=== PATIENT | female | born 1980 | race Caucasian/White ===

== ENCOUNTER → 2017-07-01 | Outpatient (CLI) | payer OTHER ==
[~2017-07-01] MED LIST: BUTA1CAP6 PO; CLON0.5T3 PO; CYCL10TA6 PO
== END | disposition home or self-care (01) ==
LOC: C.LAB 09:51
PROVIDERS: ATTEND Obstetrics & Gynecology
DX: Z13.228 Encounter for screening for other metabolic disorders (principal)

== ENCOUNTER 2019-09-29 14:08 | Observation (INO) ==
[2019-09-29] MEDS ORDERED: ACETAMINOPHEN 325 MG TAB PO PRN (14:43)
[2019-09-29] MEDS ORDERED: NIFEdipine 10 MG CAP PO STA ×3 (14:43→18:07)
[2019-09-29] MEDS ORDERED: ONDANSETRON INJ 2 MG/ML 2 ML VIAL IV PRN (14:43)
[2019-09-29 15:10] LABS: Basophils # (auto) 0.04 K/uL (0-0.2); Basophils % (auto) 0.3 %; Eosinophils # (auto) 0.14 K/uL (0-0.5); Hemoglobin 12.3 g/dL (12.0-16.0); Immature Granulocytes # (auto) 0.53 K/uL (0.00-0.02); Immature Granulocytes % (auto) 3.6 %; Lymphocytes # (auto) 3.11 K/uL (1.2-3.4); Lymphocytes % (auto) 21.3 %; Mean Corpuscular Hemoglobin 33.2 pg (25-34); Mean Corpuscular Hgb Conc 35.1 g/dL (32-36); Mean Corpuscular Volume 94.3 fL (80-100); Monocytes % (auto) 10.3 %; Neutrophils # (auto) 9.26 K/uL (1.4-6.5); Neutrophils % (auto) 63.5 %; Platelet Count 233 K/uL (130-400); RDW Coefficient of Variation 14.3 % (11.5-14.5); Red Blood Count 3.71 M/uL (4.2-5.4); White Blood Count 14.58 K/uL (4.8-10.8)
[2019-09-29] MEDS: BETAMETH SOD PHOS/ACETATE IA 6 MG/ML IM SCH (15:12)
--- NOTE | 2019-09-29 15:15 | History & Physical Report ---
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[employer] [employer] They were regular but getting better and spacing out for the last 1-2 ours Some ctxs are painful some are not No LOF/VB/ vaginal discharge/ itching or burning No problems with urination nor BM No fever/ cills/ N&V/ HANNAH change in vision +FM's Her has been uncomplicated except Class I obesity AMA Migraines Allergies Allergy/AdvReac Type Severity Reaction Status Date / Time erythromycin base Allergy Unknown Unverified 05/14/18 12:16 Home Medications Home Medications Medication Instructions Recorded Confirmed Type [id number] 1 - 2 cap PO Q4H PRN #20 08/24/14 History (BUTALBITAL/ACETAMINOPHEN/) CLONAZEPAM (KLONOPIN) 0.5 mg PO BID PRN #30 08/24/14 History CYCLOBENZAPRINE HCL (FLEXERIL) 10 mg PO Q4H PRN #21 tab 08/17/16 History BIOTIN 1,000 mg PO DAILY #0 05/14/18 History Cholecalciferol (Vitamin D) 1,000 unit PO DAILY #0 05/14/18 History FOLIC ACID (FOLVITE) 1 mg PO DAILY #0 tab 05/14/18 History VALERIE (ZINGIBER OFFICINALIS) 500 mg PO DAILY #0 05/14/18 History (VALERIE) Magnesium Oxide (Mag-Ox) 400 mg PO DAILY #0 tab 05/14/18 History VIT W/ FERROUS FUMARA 1 tab PO DAILY #0 05/14/18 History () PYRIDOXINE HCL (VITAMIN B6) 100 mg PO DAILY #0 tab 05/14/18 History Patient History Social History Preferred Language: [place] Communication Ability: Effective Aerotriangulation Specialist Required: No Beliefs That Will Affect Care: None marital status: Current Living Situation: Spouse Other Information That Helps Us Care for You: No Feels Safe at Home: Yes Safety Concerns: Feels Safe At This Time Smoking Status: Never smoker Hx Alcohol Use: No Hx Substance Use: No Review of Systems All systems reviewed & are unremarkable except as noted in HPI & below Physical Exam Constitutional: WD/WN, vitals as above well developed and well nourished NAD Gastrointestinal (Abdomen): Abd: soft, NT, gravid, mild to moderate ctxs q3-5 min Genitourinary: normal external appearance SSE: yellow d/c in upper vagina, Cx and FFN collected Cervix 1/ 50%/ -3, soft, Results & Data Vital Signs (Past 12 Hours) Vital Signs Temp Pulse Resp BP 09/29/19 14:47 118 H 135/77 09/29/19 14:41 121 H 18 150/80 H 09/29/19 14:32 123 H 18 159/85 H 09/29/19 14:25 36.6 C 20 09/29/19 14:15 121 H 131/82 Monitoring External Monitor Reative for GA Tocodynamometer Ctxs q2-4 min
[2019-09-29 15:16] LABS: Appearance Urine Cloudy (Clear); Bacteria Urine Automated 2+ (Negative); Bilirubin Urine Negative (Negative); Blood Urine Negative (Negative); Color Urine Dark Yellow; Epithelial Cell Urine Auto >30 /lpf (0-5); Glucose Urine UA 3+ (Negative); Ketones Urine 1+ (Negative); Leukocyte Esterase Urine 1+ (Negative); Nitrite Urine Negative (Negative); Protein Urine Negative (Negative); Specific Gravity Urine 1.037 (1.000-1.030); Urobilinogen Urine Negative (Negative); pH Urine 5.5 (4.5-7.5)
[2019-09-29 15:31] LABS: Albumin Level 2.7 gm/dl (3.4-5.0); BUN Creatinine Ratio 18.7 (10-20); Creatinine Clr Calc Pharmacy 164.4 ml/min; Est GFR (African American) 137.3; Est GFR (Non-African American) 118.4; Potassium 3.8 mmol/L (3.5-5.1)
[2019-09-29] MEDS: LACTATED RINGER'S 1,000 ML IV PRN ×4 (15:32→23:20)
[2019-09-29 15:33] LABS: Albumin Globulin Ratio 0.6 (0.9-2); Bilirubin,Total 0.2 mg/dl (0.2-1); Globulin 4.2 gm/dl (2.5-4.0); Total Protein 6.9 gm/dl (6.4-8.2)
[2019-09-29 15:36] LABS: Calcium Oxalate Crystals Urine Present (None Prsent); RBC Urine Automated 0-4 /hpf (0-4)
[2019-09-29] MEDS ORDERED: Nursing to Pharmacy Communication ONE (16:21)
[2019-09-29] MEDS ORDERED: cephALEXin 500 MG CAP PO ONE (16:30)
--- NOTE | 2019-09-29 16:30 | Obstetrical Progress Note ---
Date of Service September 29, 2019 Subjective Patient is reevaluated Feels better, ctxs spaced out and not as strong as before FHR reactive [place]: still has irregular ctxs q2-5 min VE; unchanged Lab Results 09/29/19 09/29/19 09/29/19 Range/Units 14:15 14:35 14:56 WBC 14.58 H (4.8-10.8) K/uL RBC 3.71 L (4.2-5.4) M/uL Hgb 12.3 (12.0-16.0) g/dL Hct 35.0 L (37-47) % MCV 94.3 (80-100) fL MCH 33.2 (25-34) pg MCHC 35.1 (32-36) g/dL RDW Std Deviation 49.0 H (36.4-46.3) fL RDW Coeff of Tamiko 14.3 (11.5-14.5) % Plt Count 233 (130-400) K/uL MPV 10.0 (7.4-10.4) fL Immature Gran % (Auto) 3.6 % Neut % (Auto) 63.5 % Lymph % (Auto) 21.3 % [place] % (Auto) 10.3 % Eos % (Auto) 1.0 % Baso % (Auto) 0.3 % Immature Gran # (Auto) 0.53 H (0.00-0.02) K/uL Neut # (Auto) 9.26 H (1.4-6.5) K/uL Lymph # (Auto) 3.11 (1.2-3.4) K/uL [place] # (Auto) 1.50 H (0.11-0.59) K/uL Eos # (Auto) 0.14 (0-0.5) K/uL Baso # (Auto) 0.04 (0-0.2) K/uL Sodium (136-145) mmol/L Potassium (3.5-5.1) mmol/L Chloride (98-107) mmol/L Carbon Dioxide (21-32) mmol/L Anion Gap (3-11) BUN (7-18) mg/dl Creatinine (0.6-1.2) mg/dl Est Cr Clr Drug Dosing ml/min Est GFR ( Amer) Est GFR (Non-Af Amer) BUN/Creatinine Ratio (10-20) Glucose (70-99) mg/dl Calcium (8.5-10.1) mg/dl Total Bilirubin (0.2-1) mg/dl AST (15-37) U/L ALT (12-78) U/L Alkaline Phosphatase (45-117) U/L Total Protein (6.4-8.2) gm/dl Albumin (3.4-5.0) gm/dl Globulin (2.5-4.0) gm/dl Albumin/Globulin Ratio (0.9-2) Urine Color Dark Yellow Urine Appearance Cloudy A (Clear) Urine pH 5.5 (4.5-7.5) Ur Specific [place] 1.037 H (1.000-1.030) Urine Protein Negative (Negative) Urine Glucose (UA) 3+ H (Negative) Urine Ketones 1+ H (Negative) Urine Blood Negative (Negative) Urine Nitrite Negative (Negative) Urine Bilirubin Negative (Negative) Urine Urobilinogen Negative (Negative) Ur Leukocyte Esterase 1+ H (Negative) Urine WBC (Auto) 10-30 H (0-5) /hpf Urine RBC (Auto) 0-4 (0-4) /hpf U Hyaline Cast (Auto) 5-10 H (0-5) /lpf U Epithel Cells (Auto) >30 H (0-5) /lpf Urine Bacteria (Auto) 2+ H (Negative) Urine Crystals Calcium Oxalate A (None Prsent) Calcium Oxalate Crystal Present A (None Prsent) Fibronectin Negative 09/29/19 Range/Units 14:56 WBC (4.8-10.8) K/uL RBC (4.2-5.4) M/uL Hgb (12.0-16.0) g/dL Hct (37-47) % MCV (80-100) fL MCH (25-34) pg MCHC (32-36) g/dL RDW Std Deviation (36.4-46.3) fL RDW Coeff of Tamiko (11.5-14.5) % Plt Count (130-400) K/uL MPV (7.4-10.4) fL Immature Gran % (Auto) % Neut % (Auto) % Lymph % (Auto) % [place] % (Auto) % Eos % (Auto) % Baso % (Auto) % Immature Gran # (Auto) (0.00-0.02) K/uL Neut # (Auto) (1.4-6.5) K/uL Lymph # (Auto) (1.2-3.4) K/uL [place] # (Auto) (0.11-0.59) K/uL Eos # (Auto) (0-0.5) K/uL Baso # (Auto) (0-0.2) K/uL Sodium 138 (136-145) mmol/L Potassium 3.8 (3.5-5.1) mmol/L Chloride 109 H (98-107) mmol/L Carbon Dioxide 19 L (21-32) mmol/L Anion Gap 10.0 (3-11) BUN 11 (7-18) mg/dl Creatinine 0.57 L (0.6-1.2) mg/dl Est Cr Clr Drug Dosing 164.4 ml/min Est GFR ( Amer) 137.3 Est GFR (Non-Af Amer) 118.4 BUN/Creatinine Ratio 18.7 (10-20) Glucose 132 H (70-99) mg/dl Calcium 9.0 (8.5-10.1) mg/dl Total Bilirubin 0.2 (0.2-1) mg/dl AST 38 H (15-37) U/L ALT 78 (12-78) U/L Alkaline Phosphatase 136 H (45-117) U/L Total Protein 6.9 (6.4-8.2) gm/dl Albumin 2.7 L (3.4-5.0) gm/dl Globulin 4.2 H (2.5-4.0) gm/dl Albumin/Globulin Ratio 0.6 L (0.9-2) Urine Color Urine Appearance (Clear) Urine pH (4.5-7.5) Ur Specific [place] (1.000-1.030) Urine Protein (Negative) Urine Glucose (UA) (Negative) Urine Ketones (Negative) Urine Blood (Negative) Urine Nitrite (Negative) Urine Bilirubin (Negative) Urine Urobilinogen (Negative) Ur Leukocyte Esterase (Negative) Urine WBC (Auto) (0-5) /hpf Urine RBC (Auto) (0-4) /hpf U Hyaline Cast (Auto) (0-5) /lpf U Epithel Cells (Auto) (0-5) /lpf Urine Bacteria (Auto) (Negative) Urine Crystals (None Prsent) Calcium Oxalate Crystal (None Prsent) Fibronectin FFN negative Vaginal cx: no clue cells Plan to continue with IVF, PO Procardia and stat Keflex for possible UTI All questions were answered Results & Data Vital Signs (Past 12 Hours) Vital Signs Temp Pulse Resp BP 09/29/19 16:16 118 H 144/91 H 09/29/19 16:01 118 H 134/85 09/29/19 16:00 20 09/29/19 15:47 117 H 134/86 09/29/19 15:33 121 H 146/77 H 09/29/19 15:30 20 09/29/19 15:17 118 H 145/87 H 09/29/19 14:47 118 H 135/77 09/29/19 14:41 121 H 18 150/80 H 09/29/19 14:32 123 H 18 159/85 H 09/29/19 14:25 36.6 C 20 09/29/19 14:15 121 H 131/82
[2019-09-29] MEDS ORDERED: LACTATED RINGER'S 500 ML IV ONE (20:00)
[2019-09-29] MEDS ORDERED: LACTATED RINGER'S 1,000 ML IV ONE (20:00)
--- NOTE | 2019-09-29 20:16 | Obstetrical Progress Note ---
Date of Service September 29, 2019 Subjective Patient is reevaluated She still feels ctxs but not all of them on the monitor and not as painful as before No LOF/VB +FM VE: unchanged, 1cm/ 50%/-3 FHR reactive [place]; ctxs q3-4 min I discussed the case with MFM at [facility] [place], did not recommended more agressive tocolysis at this point Recommended to treat UTI and/ or BV as needed, hospitalize till 2nd dose of Celestone Continue to monitor closely Results & Data Vital Signs (Past 12 Hours) Vital Signs Temp Pulse Resp BP 09/29/19 20:00 20 09/29/19 19:56 118 H 128/69 09/29/19 19:30 20 09/29/19 19:26 118 H 138/72 09/29/19 19:00 20 09/29/19 18:55 120 H 130/73 09/29/19 18:26 120 H 153/94 H 09/29/19 18:18 121 H 142/86 H 09/29/19 18:00 20 09/29/19 17:57 111 H 132/65 09/29/19 17:25 114 H 131/67 09/29/19 17:00 20 09/29/19 16:46 114 H 142/65 H 09/29/19 16:31 113 H 141/74 H 09/29/19 16:30 20 09/29/19 16:16 118 H 144/91 H 09/29/19 16:01 118 H 134/85 09/29/19 16:00 20 09/29/19 15:47 117 H 134/86 09/29/19 15:33 121 H 146/77 H 09/29/19 15:30 20 09/29/19 15:17 118 H 145/87 H 09/29/19 14:47 118 H 135/77 09/29/19 14:41 121 H 18 150/80 H 09/29/19 14:32 123 H 18 159/85 H 09/29/19 14:25 36.6 C 20 09/29/19 14:15 121 H 131/82
[2019-09-29] MEDS ORDERED: cephALEXin 500 MG CAP PO SCH (21:00)
[2019-09-29] MEDS: metroNIDAZOLE 250 MG TAB PO SCH (21:23)
[2019-09-29] MEDS: NIFEdipine 10 MG CAP PO SCH (22:32)
[2019-09-29] MEDS: cephALEXin 500 MG CAP PO SCH (22:32)
[2019-09-29] MEDS ORDERED: NIFEdipine 10 MG CAP PO SCH (22:45)
[2019-09-30] MEDS: NIFEdipine 10 MG CAP PO SCH ×3 (02:43→10:41)
[2019-09-30] MEDS ORDERED: CYCLOBENZAPRINE HCL 10 MG TAB PO PRN (02:48)
[2019-09-30] MEDS: LACTATED RINGER'S 1,000 ML IV PRN (06:11)
[2019-09-30] MEDS ORDERED: LACTATED RINGER'S 1,000 ML IV SCH (06:20)
[2019-09-30] MEDS: metroNIDAZOLE 250 MG TAB PO SCH ×2 (08:48→14:06)
[2019-09-30] MEDS: cephALEXin 500 MG CAP PO SCH ×2 (08:48→14:05)
[2019-09-30 09:27] LABS: Basophils # (auto) 0.04 K/uL (0-0.2); Basophils % (auto) 0.2 %; Eosinophils # (auto) 0.04 K/uL (0-0.5); Eosinophils % (auto) 0.2 %; Hematocrit (blood only) 33.8 % (37-47); Hemoglobin 11.7 g/dL (12.0-16.0); Immature Granulocytes # (auto) 0.67 K/uL (0.00-0.02); Immature Granulocytes % (auto) 4.1 %; Lymphocytes # (auto) 2.84 K/uL (1.2-3.4); Lymphocytes % (auto) 17.2 %; Mean Corpuscular Hemoglobin 33.1 pg (25-34); Mean Corpuscular Hgb Conc 34.6 g/dL (32-36); Mean Corpuscular Volume 95.5 fL (80-100); Mean Platelet Volume 9.8 fL (7.4-10.4); Monocytes # (auto) 1.21 K/uL (0.11-0.59); Monocytes % (auto) 7.3 %; Neutrophils # (auto) 11.71 K/uL (1.4-6.5); Platelet Count 229 K/uL (130-400); Red Blood Count 3.54 M/uL (4.2-5.4); White Blood Count 16.51 K/uL (4.8-10.8)
[2019-09-30 10:02] LABS: Albumin Globulin Ratio 0.7 (0.9-2); Albumin Level 2.6 gm/dl (3.4-5.0); BUN Creatinine Ratio 15.1 (10-20); Bilirubin,Total 0.3 mg/dl (0.2-1); Calcium 9.3 mg/dl (8.5-10.1); Creatinine Clr Calc Pharmacy 176.8 ml/min; Est GFR (African American) 140.6; Est GFR (Non-African American) 121.3; Globulin 3.8 gm/dl (2.5-4.0); Potassium 3.9 mmol/L (3.5-5.1); Total Protein 6.4 gm/dl (6.4-8.2)
[2019-09-30] MEDS: BETAMETH SOD PHOS/ACETATE IA 6 MG/ML IM SCH (14:40)
--- NOTE | 2019-09-30 23:00 | Discharge Summary ---
HISTORY OF PRESENT ILLNESS: This is a 39-year-old G2, P1 at 34 weeks, who was admitted for labor. She received Procardia. Discussion was had with maternal medicine. Recommendation was to give her betamethasone x2 doses and then discharge her after that. She received her first dose of betamethasone on 09/29/19 at 3:00 p.m., second dose was received today. Her contractions have remarkably improved since admission. The patient is presently being discharged home in stable condition. Cervical exam is unchanged since admission. course has been unremarkable. Past medical history, past surgical history, social history, and family history have all been reviewed. ALLERGIES: THE PATIENT IS ALLERGIC TO ERYTHROMYCIN. SOCIAL HISTORY: The patient denies tobacco, drug, and alcohol use. FAMILY HISTORY: Noncontributory. PHYSICAL EXAMINATION: VITAL SIGNS: Temperature is 37.0, pulse is 107, respirations 18, blood pressure is 126/70. HEART: S1, S2, regular rhythm and rate. LUNGS: Clear to auscultation bilaterally. ABDOMEN: Nondistended, gravid. PELVIC: Unchanged since admission. EXTREMITIES: No cyanosis, clubbing, or edema. ASSESSMENT AND PLAN: A 39-year-old G2, P1 at 34 weeks, admitted and treated for labor. The patient now has received 2 doses of steroids and is being discharged home on Procardia. She was given discharge instructions. VERÓNICA
== END 2019-09-30 15:20 | disposition home or self-care (01) ==
LOC: OPB 14:08 → 4S1 14:08

== ENCOUNTER 2019-11-13 16:10 | Inpatient (IN) ==
[2019-11-13] MEDS ORDERED: OXYTOCIN 30 UNITS/500 ML BAG IV PRN (17:55)
[2019-11-13] MEDS ORDERED: DINOPROSTONE 10 MG INSERT PV ONE (18:15)
[2019-11-13 18:17] LABS: Hematocrit (blood only) 34.4 % (37-47); Mean Corpuscular Hemoglobin 33.4 pg (25-34); Mean Corpuscular Volume 95.8 fL (80-100); Mean Platelet Volume 10.8 fL (7.4-10.4); Platelet Count 171 K/uL (130-400); RDW Coefficient of Variation 14.1 % (11.5-14.5); RDW Standard Deviation 49.1 fL (36.4-46.3); Red Blood Count 3.59 M/uL (4.2-5.4); White Blood Count 11.31 K/uL (4.8-10.8)
[2019-11-13 18:37] LABS: Mean Corpuscular Hgb Conc 34.9 g/dL (32-36)
[2019-11-13 18:39] LABS: Albumin Globulin Ratio 0.6 (0.9-2); Albumin Level 2.3 gm/dl (3.4-5.0); BUN Creatinine Ratio 17.9 (10-20); Bilirubin,Total 0.2 mg/dl (0.2-1); Calcium 9.1 mg/dl (8.5-10.1); Est GFR (African American) 129.5; Est GFR (Non-African American) 111.7; Globulin 4.1 gm/dl (2.5-4.0); Potassium 4.1 mmol/L (3.5-5.1); Total Protein 6.4 gm/dl (6.4-8.2)
[2019-11-13] MEDS: LACTATED RINGER'S 1,000 ML IV PRN (18:45)
--- NOTE | 2019-11-13 20:07 | Obstetrical Progress Note ---
Date of Service November 13, 2019 Subjective Met pt and family Reviewed PNC Pt here for induction of labor Pt had elevated Bp in office with abn LFT FHR; 160-160;s Ctx. Minimal VE; ft/thick/-4 Cervidil placed Results & Data Vital Signs (Past 12 Hours) Vital Signs Temp Pulse Resp BP 11/13/19 20:03 97 H 148/90 H 11/13/19 19:48 103 H 152/89 H 11/13/19 19:33 102 H 137/85 11/13/19 19:18 105 H 148/85 H 11/13/19 19:04 101 H 162/89 H 11/13/19 19:00 20 11/13/19 18:48 96 H 158/97 H 11/13/19 18:34 95 H 145/94 H 11/13/19 18:18 104 H 154/92 H 11/13/19 18:07 108 H 143/93 H 11/13/19 18:00 20 11/13/19 17:49 112 H 148/101 H 11/13/19 17:30 22 11/13/19 17:17 109 H 147/79 H 11/13/19 17:03 115 H 143/86 H 11/13/19 17:00 20 11/13/19 16:47 111 H 144/92 H 11/13/19 16:38 37.2 C 20 11/13/19 16:32 107 H 151/94 H 11/13/19 16:30 120 H 139/99
--- NOTE | 2019-11-13 20:09 | Obstetrical Progress Note ---
Date of Service November 13, 2019 Subjective [facility] labs reviewed NMl plt, Nml LFT's Results & Data Vital Signs (Past 12 Hours) Vital Signs Temp Pulse Resp BP 11/13/19 20:03 97 H 148/90 H 11/13/19 19:48 103 H 152/89 H 11/13/19 19:33 102 H 137/85 11/13/19 19:18 105 H 148/85 H 11/13/19 19:04 101 H 162/89 H 11/13/19 19:00 20 11/13/19 18:48 96 H 158/97 H 11/13/19 18:34 95 H 145/94 H 11/13/19 18:18 104 H 154/92 H 11/13/19 18:07 108 H 143/93 H 11/13/19 18:00 20 11/13/19 17:49 112 H 148/101 H 11/13/19 17:30 22 11/13/19 17:17 109 H 147/79 H 11/13/19 17:03 115 H 143/86 H 11/13/19 17:00 20 11/13/19 16:47 111 H 144/92 H 11/13/19 16:38 37.2 C 20 11/13/19 16:32 107 H 151/94 H 11/13/19 16:30 120 H 139/99
[2019-11-13] MEDS: ACETAMINOPHEN 500 MG TAB PO PRN (22:26)
[2019-11-14] MEDS: LACTATED RINGER'S 1,000 ML IV PRN ×3 (00:47→19:45)
[2019-11-14] MEDS ORDERED: BUTORPHANOL TARTRATE 1 MG/ML VIAL IV ONE (01:55)
[2019-11-14] MEDS ORDERED: BUTORPHANOL TARTRATE 1 MG/ML VIAL ONE (02:14)
[2019-11-14] MEDS ORDERED: PENICILLIN G POTASSIUM 6 MU in DEXTROSE 5% 250 ML IV STA (03:32)
--- NOTE | 2019-11-14 09:58 | Obstetrical Progress Note ---
Date of Service November 14, 2019 Physical Exam Genitourinary: OB Exam Abdomen: + vertex, + estimated weight (9-10 lbs.) and + irregular contractions Manual OB Exam: + cervical dilation 2 cm, + cervical effacement 50% and + station high OB Exam Monitor Tracing: + external FHT monitor used, + external uterine monitor used, + category I and + normal FHT variability will start Oxytocin to augment contractions Results & Data Vital Signs (Past 12 Hours) Vital Signs Temp Pulse Resp BP Pulse Ox 11/14/19 07:19 77 135/81 11/14/19 07:16 36.5 C 20 11/14/19 06:20 18 11/14/19 05:10 36.9 C 18 11/14/19 05:09 85 142/91 H 11/14/19 05:07 90 96 11/14/19 05:02 84 95 11/14/19 05:00 16 11/14/19 04:57 90 96 11/14/19 04:53 84 94 11/14/19 04:52 79 94 11/14/19 04:48 80 94 11/14/19 04:47 83 95 11/14/19 04:42 78 94 11/14/19 04:37 78 95 11/14/19 04:32 73 96 11/14/19 04:30 78 94 11/14/19 04:27 77 94 11/14/19 04:25 83 94 11/14/19 04:22 79 95 11/14/19 04:20 77 94 11/14/19 04:17 79 94 11/14/19 04:14 76 94 11/14/19 04:12 75 95 11/14/19 04:07 72 94 11/14/19 04:06 75 94 11/14/19 04:02 76 94 11/14/19 04:01 77 94 11/14/19 03:57 77 95 11/14/19 03:56 78 94 11/14/19 03:52 81 94 11/14/19 03:49 74 94 11/14/19 03:47 72 94 11/14/19 03:44 72 94 11/14/19 03:42 76 94 11/14/19 03:38 73 93 11/14/19 03:37 74 95 11/14/19 03:32 71 94 11/14/19 03:31 18 11/14/19 03:27 77 95 11/14/19 03:22 71 95 11/14/19 03:21 73 94 11/14/19 03:17 76 94 11/14/19 03:16 72 94 11/14/19 03:12 73 94 11/14/19 03:10 76 93 11/14/19 03:07 71 95 11/14/19 03:05 67 94 11/14/19 03:02 71 94 11/14/19 02:59 70 94 11/14/19 02:57 73 95 11/14/19 02:54 75 94 11/14/19 02:52 73 94 11/14/19 02:48 66 94 11/14/19 02:47 67 95 11/14/19 02:43 82 93 11/14/19 02:42 67 94 11/14/19 02:37 66 93 11/14/19 02:32 72 96 11/14/19 02:31 63 94 11/14/19 02:27 69 94 11/14/19 02:26 70 94 11/14/19 02:22 36.3 C L 84 18 97 11/14/19 02:17 82 97 11/14/19 02:12 81 96 11/14/19 02:10 79 146/93 H 11/13/19 23:01 36.9 C 18 11/13/19 22:57 97 H 144/90 H 11/13/19 22:00 20
[2019-11-14] MEDS: OXYTOCIN 30 UNITS/500 ML BAG IV PRN (10:37)
--- NOTE | 2019-11-14 15:22 | Obstetrical Progress Note ---
Date of Service November 14, 2019 Physical Exam Genitourinary: Manual OB Exam: + cervical dilation 2 cm and 3 cm, + cervical effacement 50% and + station high OB Exam Monitor Tracing: + external FHT monitor used, + external uterine monitor used, + category I and + normal FHT variability Results & Data Vital Signs (Past 12 Hours) Vital Signs Temp Pulse Resp BP Pulse Ox 11/14/19 15:19 85 137/88 11/14/19 14:36 88 144/90 H 11/14/19 13:10 85 119/62 11/14/19 11:39 95 H 116/70 11/14/19 11:37 37.0 C 20 11/14/19 10:41 113 H 137/81 11/14/19 07:19 77 135/81 11/14/19 07:16 36.5 C 20 11/14/19 06:20 18 11/14/19 05:10 36.9 C 18 11/14/19 05:09 85 142/91 H 11/14/19 05:07 90 96 11/14/19 05:02 84 95 11/14/19 05:00 16 11/14/19 04:57 90 96 11/14/19 04:53 84 94 11/14/19 04:52 79 94 11/14/19 04:48 80 94 11/14/19 04:47 83 95 11/14/19 04:42 78 94 11/14/19 04:37 78 95 11/14/19 04:32 73 96 11/14/19 04:30 78 94 11/14/19 04:27 77 94 11/14/19 04:25 83 94 11/14/19 04:22 79 95 11/14/19 04:20 77 94 11/14/19 04:17 79 94 11/14/19 04:14 76 94 11/14/19 04:12 75 95 11/14/19 04:07 72 94 11/14/19 04:06 75 94 11/14/19 04:02 76 94 11/14/19 04:01 77 94 11/14/19 03:57 77 95 11/14/19 03:56 78 94 11/14/19 03:52 81 94 11/14/19 03:49 74 94 11/14/19 03:47 72 94 11/14/19 03:44 72 94 11/14/19 03:42 76 94 11/14/19 03:38 73 93 11/14/19 03:37 74 95 11/14/19 03:32 71 94 11/14/19 03:31 18 11/14/19 03:27 77 95 11/14/19 03:22 71 95
[2019-11-14] MEDS: PENICILLIN G POTASSIUM 3 MU in DEXTROSE 5% 100 ML IV PRN ×2 (15:41→19:55)
[2019-11-14] MEDS ORDERED: ePHEDrine sulfate 50 MG/ML AMP ONE (21:57)
[2019-11-14] MEDS ORDERED: BUPIVACAINE 0.25% 30 ML VIAL ONE (21:57)
[2019-11-14] MEDS ORDERED: fentaNYL citrate 100 MCG/2 ML VIAL ONE (21:57)
[2019-11-14] MEDS ORDERED: fentaNYL 2MCG/ML ROPIV 1.25MG/ML 100 ML BAG EPI ONE (21:58)
--- NOTE | 2019-11-14 22:13 | Anesthesiology Consultation ---
Date of Service November 14, 2019 Assessment & Plan (1) Encounter for pre-operative examination: (2) Migraine: (3) S/P left knee arthroscopy: Chart Review Chart Review: Patient NOT seen in Pre Admission Testing and Acceptable Risk for Labor Epidural Consults Requested none ASA ASA2 Proposed Anesthesia Anesthesia Type: Labor Epidural Risk / Benefits Reviewed With: PT / POA / Parent / Guardian, Accepts Plan and Informed Consent Obtained History Height/Weight Height: 5 ft 7 in Weight: 104.78 kg Allergies Allergy/AdvReac Type Severity Reaction Status Date / Time erythromycin base Allergy Unknown Nausea Verified 11/14/19 12:40 Medications Home Medications Medication Instructions Recorded Confirmed Last Taken docusate sodium [Colace] 100 mg PO BID 09/29/19 11/13/19 10/05/19 06:00 famotidine 20 mg PO DAILY PRN 09/29/19 11/13/19 Unknown ferrous sulfate [iron] 325 mg PO DAILY 09/29/19 11/13/19 10/05/19 06:00 PNV [id number] fumarate-FA 1 tab PO DAILY 09/30/19 11/13/19 10/05/19 06:30 [] biotin 1,000 mcg PO DAILY 09/30/19 11/13/19 10/05/19 06:00 jzqnxujviu-xvrquoikgtput-cvft 1 cap PO Q4 PRN 09/30/19 11/13/19 Unknown cholecalciferol (vitamin D3) 5,000 unit PO DAILY 09/30/19 11/13/19 10/05/19 06:0 0 clonazepam [Klonopin] 0.5 mg PO BID PRN 09/30/19 11/13/19 Unknown cyclobenzaprine 10 mg PO BID PRN 09/30/19 11/13/19 Unknown fluoxetine [Prozac] 20 mg PO DAILY 09/30/19 11/13/19 11/13/19 folic acid 800 mcg PO DAILY 09/30/19 11/13/19 10/05/19 06:00 nino (Zingiber officinalis) 400 mg PO DAILY 09/30/19 11/13/19 10/05/19 06:00 magnesium oxide 800 mg PO DAILY 09/30/19 11/13/19 10/05/19 06:00 ondansetron HCl [Zofran] 8 mg PO TID PRN 09/30/19 11/13/19 Unknown riboflavin (vitamin B2) 400 mg PO DAILY 09/30/19 11/13/19 10/05/19 06:00 Active Medications Generic Name Dose Route Start Last Admin Trade Name Fresana PRN Reason Stop Dose Admin Acetaminophen 1,000 mg 11/13/19 21:51 11/13/19 22:26 Tylenol PO 12/13/19 21:50 1,000 mg Q6H PRN Administration pain Lactated Ringer's 1,000 mls @ 125 mls/hr 11/13/19 17:55 11/14/19 22:00 Lr IV 11/15/19 17:54 999 mls/hr .Q8H PRN Infusion L&D Protocol Protocol Penicillin G Potassium 3 mu/ 106 mls @ 100 mls/hr 11/14/19 03:32 11/14/19 19:55 Dextrose IV 11/24/19 03:31 100 mls/hr Q4H PRN Administration Give until delivery Oxytocin 30 units in 500 mls @ 20 mls/hr 11/14/19 10:14 11/14/19 20:30 Pitocin IV 11/16/19 10:13 1.2 units/hr .Q24H PRN 20 mls/hr Labor Induction/Augmentation Titration Protocol 1.2 UNITS/HR NPO Date Last Intake of Fluids: 11/14/19 Time Last Intake of Fluids: 22:12 Date Last Intake of Solids: 11/14/19 Time Last Intake of Solids: 08:00 Past Medical History Medical History Acid reflux Bundle branch block, right Lyme disease Migraine (Acute) Spontaneous Exercise / Class Metabolic Activity II 4-5 Yardwork/Stairs/Walk up hill Past Surgical History Surgical History Hx of cholecystectomy S/P left knee arthroscopy Past Anesthesia History No Hx of Anesthesia Complications History of PONV No Hx of PONV Social History Smoking Status: Former smoker tobacco type: cigarettes Hx Alcohol Use: No Hx Substance Use: No substance use type: does not use Review of Systems Patient denies history of abnormal bleeding or bleeding disorder. Patient denies active use of anticoagulants other than low dose aspirin. Patient denies numbness, tingling or weakness in lower extremities. Physical Exam Vital Signs Last Vital Signs Temp 37.0 C 11/14/19 19:06 Pulse 97 H 11/14/19 22:17 Resp 18 11/14/19 19:06 BP 136/84 11/14/19 21:52 Pulse Ox 98 11/14/19 22:17 Constitutional not obese (gravid uterus) ENMT Mouth: no TMJ abnormality and oral opening not small Thyromental Distance: > or= 3.5 Finger Breadths Mallampati Class: III Neck normal visual inspection; neck extension not limited Respiratory normal respiratory effort Auscultation: lungs clear to auscultation bilaterally Cardiovascular Rate/Rhythm: regular rate and regular rhythm Heart Sounds: no murmur Neurologic moves all extremities Psychiatric Orientation: alert and oriented x 3 Testing Laboratory Results 11/13/19 18:05 11/13/19 18:05
[2019-11-14] MEDS ORDERED: NALOXONE HCL 1 MG in SODIUM CHLORIDE 0.9% 1000ML 1,000 ML IV PRN (22:51)
[2019-11-14] MEDS ORDERED: ePHEDrine sulfate 50 MG/ML AMP IV PRN (22:51)
[2019-11-14] MEDS ORDERED: DiphenhydrAMINE HCL 50 MG/ML VIAL IV PRN (22:51)
[2019-11-14] MEDS ORDERED: NALOXONE HCL 0.4 MG/1 ML VIAL/CARP IV PRN (22:51)
[2019-11-14] MEDS ORDERED: NALBUPHINE HCL INJ 10 MG/ML AMP IV PRN (22:51)
[2019-11-14] MEDS ORDERED: ONDANSETRON INJ 2 MG/ML 2 ML VIAL ONE (23:08)
[2019-11-14] MEDS: ONDANSETRON INJ 2 MG/ML 2 ML VIAL IV PRN (23:11)
[2019-11-14] MEDS: ACETAMINOPHEN 500 MG TAB PO PRN (23:33)
[2019-11-15] MEDS: PENICILLIN G POTASSIUM 3 MU in DEXTROSE 5% 100 ML IV PRN ×5 (00:12→16:41)
[2019-11-15] MEDS: fentaNYL 2MCG/ML ROPIV 1.25MG/ML 100 ML BAG EPI PRN ×4 (02:20→13:04)
[2019-11-15] MEDS ORDERED: BUPIVACAINE 0.25% 30 ML VIAL ONE ×4 (02:21→10:58)
[2019-11-15] MEDS: LACTATED RINGER'S 1,000 ML IV PRN ×2 (02:54→13:56)
--- NOTE | 2019-11-15 02:55 | Obstetrical Progress Note ---
Date of Service November 15, 2019 Physical Exam Genitourinary: Manual OB Exam: + cervical dilation 4 cm, + cervical effacement 70%, + station -2 and + amniotic fluid clear OB Exam Monitor Tracing: + external FHT monitor used, + external uterine monitor used, + category I and + normal FHT variability forebag ruptured for clear fluid Results & Data Vital Signs (Past 12 Hours) Vital Signs Temp Pulse Resp BP Pulse Ox 11/15/19 02:53 85 127/74 11/15/19 02:52 89 97 11/15/19 02:47 84 97 11/15/19 02:46 80 132/70 11/15/19 02:44 72 132/72 11/15/19 02:42 78 132/64 96 11/15/19 02:40 81 128/63 11/15/19 02:38 76 134/74 11/15/19 02:37 78 96 11/15/19 02:36 86 134/79 11/15/19 02:34 80 132/71 11/15/19 02:32 86 128/72 97 11/15/19 02:30 83 20 136/77 11/15/19 02:28 77 138/70 11/15/19 02:27 80 97 11/15/19 02:26 72 140/74 11/15/19 02:25 86 148/80 H 11/15/19 02:22 77 96 11/15/19 02:17 75 97 11/15/19 02:16 68 135/75 11/15/19 02:12 79 97 11/15/19 02:07 94 H 97 11/15/19 02:02 75 96 11/15/19 02:01 71 127/77 11/15/19 02:00 20 11/15/19 01:57 79 96 11/15/19 01:52 78 96 11/15/19 01:47 85 96 11/15/19 01:45 75 139/82 11/15/19 01:42 99 H 97 11/15/19 01:41 75 94 11/15/19 01:37 69 94 11/15/19 01:35 71 94 11/15/19 01:32 76 92 11/15/19 01:31 68 132/71 11/15/19 01:30 18 11/15/19 01:29 73 94 12/18/19 01:27 72 95 12/18/19 01:24 76 94 12/18/19 01:22 74 95 12/18/19 01:19 70 94 12/18/19 01:17 81 94 12/18/19 01:15 73 123/72 12/18/19 01:14 70 93 12/18/19 01:12 69 96 12/18/19 01:08 71 94 12/18/19 01:07 69 95 1218/19 01:03 70 94 12/18/19 01:02 70 94 12/18/19 01:00 58 L 122/73 12/18/19 00:59 20 12/18/19 00:57 68 96 12/18/19 00:55 69 92 12/18/19 00:52 83 94 12/18/19 00:50 67 94 12/18/19 00:47 66 130/77 95 12/18/19 00:45 65 93 12/18/19 00:42 71 94 12/18/19 00:39 71 92 12/18/19 00:37 65 95 12/18/19 00:33 68 94 12/18/19 00:32 67 94 12/18/19 00:30 73 20 118/68 12/18/19 00:28 74 94 12/18/19 00:27 73 94 12/18/19 00:22 69 95 12/18/19 00:17 64 94 12/18/19 00:16 68 93 12/18/19 00:15 65 119/67 12/18/19 00:12 69 95 12/18/19 00:11 66 94 12/18/19 00:07 67 94 12/18/19 00:05 65 94 12/18/19 00:02 70 95 12/18/19 00:00 65 20 115/71 12/17/19 23:57 68 95 12/17/19 23:56 68 94 12/17/19 23:52 70 96 12/17/19 23:51 77 93 12/17/19 23:47 67 95 12/17/19 23:46 70 149/79 H 12/17/19 23:45 18 12/17/19 23:42 75 97 12/17/19 23:37 86 97 12/17/19 23:32 87 98 12/17/19 23:30 36.8 C 75 20 129/70 11/14/19 23:27 95 H 97 11/14/19 23:22 74 96 11/14/19 23:17 88 98 11/14/19 23:15 82 20 128/66 11/14/19 23:12 89 97 11/14/19 23:11 86 144/72 H 11/14/19 23:07 97 H 98 11/14/19 23:06 99 H 133/68 11/14/19 23:02 97 H 98 11/14/19 23:01 100 H 136/73 11/14/19 23:00 20 11/14/19 22:59 106 H 136/74 11/14/19 22:57 109 H 127/67 97 11/14/19 22:55 105 H 20 126/76 11/14/19 22:53 115 H 123/74 11/14/19 22:52 105 H 97 11/14/19 22:51 103 H 130/77 11/14/19 22:50 20 11/14/19 22:49 101 H 124/70 11/14/19 22:47 106 H 125/73 96 11/14/19 22:45 104 H 20 127/75 11/14/19 22:43 107 H 140/74 11/14/19 22:42 112 H 97 11/14/19 22:41 103 H 144/83 H 11/14/19 22:39 100 H 130/80 11/14/19 22:37 93 H 145/83 H 98 11/14/19 22:32 96 H 98 11/14/19 22:27 82 98 11/14/19 22:22 89 97 11/14/19 22:17 97 H 98 11/14/19 22:12 87 97 11/14/19 21:55 36.8 C 11/14/19 21:52 86 136/84 11/14/19 20:51 75 117/51 L 11/14/19 20:02 88 144/81 H 11/14/19 19:09 82 132/100 11/14/19 19:06 37.0 C 18 11/14/19 18:35 83 116/68 11/14/19 17:09 96 H 148/93 H 11/14/19 16:24 88 142/83 H 11/14/19 15:19 85 137/88
[2019-11-15] MEDS ORDERED: Nursing to Pharmacy Communication ONE (03:17)
[2019-11-15] MEDS ORDERED: fentaNYL citrate 100 MCG/2 ML VIAL ONE ×4 (04:20→19:14)
[2019-11-15] MEDS ORDERED: cefOXitin 2,000 MG in DEXTROSE 5% 50 ML IV SCH (06:00)
[2019-11-15] MEDS ORDERED: CITRIC ACID/SODIUM CITRATE 15 ML UDC PO SCH (06:00)
--- NOTE | 2019-11-15 11:13 | Anesthesiology Progress Note ---
Date of Service The patient stated having increasing labor pains. The epidural catheter was bolused with bupivacaine 0.25% 3mL. The patient stated having improved labor pains after the bolus. November 15, 2019 Physical Exam Vital Signs: Last Vital Signs Temp 97.9 F 11/15/19 10:32 Pulse 80 11/15/19 11:07 Resp 18 11/15/19 10:32 BP 124/71 11/15/19 11:02 Pulse Ox 95 11/15/19 11:07 Results & Data Medications Administered Acetaminophen (Tylenol) 1,000 mg PO Q6H PRN PRN Reason: pain Stop: 12/13/19 21:50 Last Admin: 11/14/19 23:33 Dose: 1,000 mg Documented by: [id number] Admin: 11/13/19 22:26 Dose: 1,000 mg Documented by: [id number] Lactated Ringer's (Lr) 1,000 mls @ 125 mls/hr IV .Q8H PRN; Protocol PRN Reason: L&D Protocol Stop: 11/15/19 17:54 Last Admin: 11/15/19 02:54 Dose: 125 mls/hr Documented by: [id number] Infusion: 11/14/19 23:51 Dose: 125 mls/hr Documented by: [id number] Infusion: 11/14/19 22:45 Dose: 125 mls/hr Documented by: [id number] Infusion: 11/14/19 22:00 Dose: 999 mls/hr Documented by: [id number] Infusion: 11/14/19 21:15 Dose: 125 mls/hr Documented by: [id number] Infusion: 11/14/19 19:55 Dose: 0 mls/hr Documented by: [id number] Admin: 11/14/19 19:45 Dose: 125 mls/hr Documented by: [id number] Infusion: 11/14/19 18:41 Dose: 125 mls/hr Documented by: [id number] Infusion: 11/14/19 10:36 Dose: 125 mls/hr Documented by: [id number] Infusion: 11/14/19 06:23 Dose: 0 mls/hr Documented by: [id number] Admin: 11/14/19 05:08 Dose: 125 mls/hr Documented by: [id number] Infusion: 11/14/19 04:50 Dose: 125 mls/hr Documented by: [id number] Infusion: 11/14/19 03:25 Dose: 125 mls/hr Documented by: [id number] Infusion: 11/14/19 03:10 Dose: 999 mls/hr Documented by: [id number] Infusion: 11/14/19 01:06 Dose: 125 mls/hr Documented by: [id number] Admin: 11/14/19 00:47 Dose: 999 mls/hr Documented by: [id number] Infusion: 11/14/19 00:47 Dose: 999 mls/hr Documented by: [id number] Infusion: 11/14/19 00:30 Dose: 999 mls/hr Documented by: [id number] Admin: 11/13/19 18:45 Dose: 125 mls/hr Documented by: [id number] Penicillin G Potassium 3 mu/ (Dextrose) 106 mls @ 100 mls/hr IV Q4H PRN PRN Reason: Give until delivery Stop: 11/24/19 03:31 Last Infusion: 11/15/19 09:00 Dose: 0 mls/hr Documented by: [id number] Admin: 11/15/19 07:57 Dose: 100 mls/hr Documented by: [id number] Infusion: 11/15/19 05:25 Dose: 0 mls/hr Documented by: [id number] Admin: 11/15/19 04:21 Dose: 100 mls/hr Documented by: [id number] Infusion: 11/15/19 01:15 Dose: 0 mls/hr Documented by: [id number] Admin: 11/15/19 00:12 Dose: 100 mls/hr Documented by: [id number] Infusion: 11/14/19 20:59 Dose: 100 mls/hr Documented by: [id number] Admin: 11/14/19 19:55 Dose: 100 mls/hr Documented by: [id number] Infusion: 11/14/19 16:45 Dose: 100 mls/hr Documented by: [id number] Admin: 11/14/19 15:41 Dose: 100 mls/hr Documented by: [id number] Oxytocin (Pitocin) 30 units in 500 mls @ 24 mls/hr IV .[id number] PRN; Protocol PRN Reason: Labor Induction/Augmentation Stop: 11/16/19 10:13 Last Titration: 11/15/19 10:55 Dose: 1.44 units/hr, 24 mls/hr Documented by: [id number] Titration: 11/15/19 10:20 Dose: 1.32 units/hr, 22 mls/hr Documented by: [id number] Titration: 11/14/19 20:30 Dose: 1.2 units/hr, 20 mls/hr Documented by: [id number] Titration: 11/14/19 19:20 Dose: 1.14 units/hr, 19 mls/hr Documented by: [id number] Titration: 11/14/19 18:41 Dose: 1.02 units/hr, 17 mls/hr Documented by: [id number] Titration: 11/14/19 15:00 Dose: 1.02 units/hr, 17 mls/hr Documented by: [id number] Titration: 11/14/19 14:30 Dose: 0.9 units/hr, 15 mls/hr Documented by: [id number] Titration: 11/14/19 14:00 Dose: 0.78 units/hr, 13 mls/hr Documented by: [id number] Titration: 11/14/19 13:30 Dose: 0.66 units/hr, 11 mls/hr Documented by: [id number] Titration: 11/14/19 12:37 Dose: 0.54 units/hr, 9 mls/hr Documented by: [id number] Titration: 11/14/19 12:07 Dose: 0.42 units/hr, 7 mls/hr Documented by: [id number] Titration: 11/14/19 11:37 Dose: 0.3 units/hr, 5 mls/hr Documented by: [id number] Titration: 11/14/19 11:07 Dose: 0.18 units/hr, 3 mls/hr Documented by: [id number] Admin: 11/14/19 10:37 Dose: 0.06 units/hr, 1 mls/hr Documented by: [id number] Cosigned by: [id number] Ondansetron HCl (Zofran) 4 mg IV Q6H PRN PRN Reason: Nausea And Vomiting Stop: 11/15/19 22:50 Last Admin: 11/14/19 23:11 Dose: 4 mg Documented by: [id number] Ropivacaine (Epidural (L&D)) 100 ml EPI PRN PRN; Protocol PRN Reason: Pain R/T Labor Stop: 11/15/19 22:50 Last Admin: 11/15/19 09:18 Dose: 100 ml Documented by: [id number] Cosigned by: [id number] Admin: 11/15/19 04:22 Dose: 14 ml Documented by: [id number] Cosigned by: [id number] Admin: 11/15/19 02:20 Dose: 12 mg Documented by: [id number] Cosigned by: [id number]
[2019-11-15] MEDS ORDERED: CALCIUM CARBONATE 500 MG CHEWABLE TAB ONE (13:50)
[2019-11-15] MEDS: OXYTOCIN 30 UNITS/500 ML BAG IV PRN (13:55)
[2019-11-15] MEDS ORDERED: CALCIUM CARBONATE 500 MG CHEWABLE TAB PO PRN (14:09)
--- NOTE | 2019-11-15 14:31 | Anesthesiology Progress Note ---
Date of Service November 15, 2019 Subjective The patient stated having increasing labor pains. The epidural catheter was dominique lused with bupivacaine 0.25% 4mL. Afterwards, the patient stated having improved labor pains. Physical Exam Vital Signs: Last Vital Signs Temp 97.9 F 11/15/19 12:18 Pulse 81 11/15/19 14:22 Resp 18 11/15/19 13:47 BP 143/89 H 11/15/19 13:33 Pulse Ox 97 11/15/19 14:22 Results & Data Medications Administered Acetaminophen (Tylenol) 1,000 mg PO Q6H PRN PRN Reason: pain Stop: 12/13/19 21:50 Last Admin: 11/14/19 23:33 Dose: 1,000 mg Documented by: [id number] Admin: 11/13/19 22:26 Dose: 1,000 mg Documented by: [id number] Lactated Ringer's (Lr) 1,000 mls @ 125 mls/hr IV .Q8H PRN; Protocol PRN Reason: L&D Protocol Stop: 11/15/19 17:54 Last Admin: 11/15/19 13:56 Dose: 125 mls/hr Documented by: [id number] Infusion: 11/15/19 10:54 Dose: 125 mls/hr Documented by: [id number] Admin: 11/15/19 02:54 Dose: 125 mls/hr Documented by: [id number] Infusion: 11/14/19 23:51 Dose: 125 mls/hr Documented by: [id number] Infusion: 11/14/19 22:45 Dose: 125 mls/hr Documented by: [id number] Infusion: 11/14/19 22:00 Dose: 999 mls/hr Documented by: [id number] Infusion: 11/14/19 21:15 Dose: 125 mls/hr Documented by: [id number] Infusion: 11/14/19 19:55 Dose: 0 mls/hr Documented by: [id number] Admin: 11/14/19 19:45 Dose: 125 mls/hr Documented by: [id number] Infusion: 11/14/19 18:41 Dose: 125 mls/hr Documented by: [id number] Infusion: 11/14/19 10:36 Dose: 125 mls/hr Documented by: [id number] Infusion: 11/14/19 06:23 Dose: 0 mls/hr Documented by: [id number] Admin: 11/14/19 05:08 Dose: 125 mls/hr Documented by: [id number] Infusion: 11/14/19 04:50 Dose: 125 mls/hr Documented by: [id number] Infusion: 11/14/19 03:25 Dose: 125 mls/hr Documented by: [id number] Infusion: 11/14/19 03:10 Dose: 999 mls/hr Documented by: [id number] Infusion: 11/14/19 01:06 Dose: 125 mls/hr Documented by: [id number] Admin: 11/14/19 00:47 Dose: 999 mls/hr Documented by: [id number] Infusion: 11/14/19 00:47 Dose: 999 mls/hr Documented by: [id number] Infusion: 11/14/19 00:30 Dose: 999 mls/hr Documented by: [id number] Admin: 11/13/19 18:45 Dose: 125 mls/hr Documented by: [id number] Penicillin G Potassium 3 mu/ (Dextrose) 106 mls @ 100 mls/hr IV Q4H PRN PRN Reason: Give until delivery Stop: 11/24/19 03:31 Last Infusion: 11/15/19 13:23 Dose: 0 mls/hr Documented by: [id number] Admin: 11/15/19 12:13 Dose: 100 mls/hr Documented by: [id number] Infusion: 11/15/19 09:00 Dose: 0 mls/hr Documented by: [id number] Admin: 11/15/19 07:57 Dose: 100 mls/hr Documented by: [id number] Infusion: 11/15/19 05:25 Dose: 0 mls/hr Documented by: [id number] Admin: 11/15/19 04:21 Dose: 100 mls/hr Documented by: [id number] Infusion: 11/15/19 01:15 Dose: 0 mls/hr Documented by: [id number] Admin: 11/15/19 00:12 Dose: 100 mls/hr Documented by: [id number] Infusion: 11/14/19 20:59 Dose: 100 mls/hr Documented by: [id number] Admin: 11/14/19 19:55 Dose: 100 mls/hr Documented by: [id number] Infusion: 11/14/19 16:45 Dose: 100 mls/hr Documented by: [id number] Admin: 11/14/19 15:41 Dose: 100 mls/hr Documented by: [id number] Oxytocin (Pitocin) 30 units in 500 mls @ 34 mls/hr IV .[id number] PRN; Protocol PRN Reason: Labor Induction/Augmentation Stop: 11/16/19 10:13 Last Admin: 11/15/19 13:55 Dose: 2.04 units/hr, 34 mls/hr Documented by: [id number] Cosigned by: [id number] Titration: 11/15/19 13:47 Dose: 1.92 units/hr, 32 mls/hr Documented by: [id number] Cosigned by: [id number] Titration: 11/15/19 13:24 Dose: 1.92 units/hr, 32 mls/hr Documented by: [id number] Titration: 11/15/19 12:45 Dose: 1.8 units/hr, 30 mls/hr Documented by: [id number] Titration: 11/15/19 12:10 Dose: 1.68 units/hr, 28 mls/hr Documented by: [id number] Titration: 11/15/19 11:25 Dose: 1.56 units/hr, 26 mls/hr Documented by: [id number] Titration: 11/15/19 10:55 Dose: 1.44 units/hr, 24 mls/hr Documented by: [id number] Titration: 11/15/19 10:20 Dose: 1.32 units/hr, 22 mls/hr Documented by: [id number] Titration: 11/14/19 20:30 Dose: 1.2 units/hr, 20 mls/hr Documented by: [id number] Titration: 11/14/19 19:20 Dose: 1.14 units/hr, 19 mls/hr Documented by: [id number] Titration: 11/14/19 18:41 Dose: 1.02 units/hr, 17 mls/hr Documented by: [id number] Titration: 11/14/19 15:00 Dose: 1.02 units/hr, 17 mls/hr Documented by: [id number] Titration: 11/14/19 14:30 Dose: 0.9 units/hr, 15 mls/hr Documented by: [id number] Titration: 11/14/19 14:00 Dose: 0.78 units/hr, 13 mls/hr Documented by: [id number] Titration: 11/14/19 13:30 Dose: 0.66 units/hr, 11 mls/hr Documented by: [id number] Titration: 11/14/19 12:37 Dose: 0.54 units/hr, 9 mls/hr Documented by: [id number] Titration: 11/14/19 12:07 Dose: 0.42 units/hr, 7 mls/hr Documented by: [id number] Titration: 11/14/19 11:37 Dose: 0.3 units/hr, 5 mls/hr Documented by: [id number] Titration: 11/14/19 11:07 Dose: 0.18 units/hr, 3 mls/hr Documented by: [id number] Admin: 11/14/19 10:37 Dose: 0.06 units/hr, 1 mls/hr Documented by: [id number] Cosigned by: [id number] Ondansetron HCl (Zofran) 4 mg IV Q6H PRN PRN Reason: Nausea And Vomiting Stop: 11/15/19 22:50 Last Admin: 11/14/19 23:11 Dose: 4 mg Documented by: [id number] Ropivacaine (Epidural (L&D)) 100 ml EPI PRN PRN; Protocol PRN Reason: Pain R/T Labor Stop: 11/15/19 22:50 Last Admin: 11/15/19 13:04 Dose: 100 ml Documented by: [id number] Cosigned by: [id number] Admin: 11/15/19 09:18 Dose: 100 ml Documented by: [id number] Cosigned by: [id number] Admin: 11/15/19 04:22 Dose: 14 ml Documented by: [id number] Cosigned by: [id number] Admin: 11/15/19 02:20 Dose: 12 mg Documented by: [id number] Cosigned by: [id number]
[2019-11-15] MEDS: ONDANSETRON INJ 2 MG/ML 2 ML VIAL IV PRN (16:26)
[2019-11-15] MEDS ORDERED: LACTATED RINGER'S 1,000 ML IV SCH ×3 (17:30→19:15)
[2019-11-15 17:59] LABS: Basophils # (auto) 0.02 K/uL (0-0.2); Basophils % (auto) 0.2 %; Eosinophils # (auto) 0.07 K/uL (0-0.5); Eosinophils % (auto) 0.6 %; Hematocrit (blood only) 33.5 % (37-47); Hemoglobin 11.3 g/dL (12.0-16.0); Immature Granulocytes # (auto) 0.21 K/uL (0.00-0.02); Immature Granulocytes % (auto) 1.7 %; Lymphocytes # (auto) 1.92 K/uL (1.2-3.4); Lymphocytes % (auto) 15.8 %; Mean Corpuscular Hemoglobin 32.4 pg (25-34); Mean Platelet Volume 11.1 fL (7.4-10.4); Monocytes # (auto) 1.32 K/uL (0.11-0.59); Monocytes % (auto) 10.8 %; Neutrophils # (auto) 8.65 K/uL (1.4-6.5); Neutrophils % (auto) 70.9 %; Platelet Count 154 K/uL (130-400); RDW Coefficient of Variation 14.1 % (11.5-14.5); RDW Standard Deviation 49.5 fL (36.4-46.3); Red Blood Count 3.49 M/uL (4.2-5.4); White Blood Count 12.19 K/uL (4.8-10.8)
[2019-11-15] MEDS ORDERED: OXYTOCIN 10 UNITS/ML VIAL ONE (18:02)
[2019-11-15] MEDS ORDERED: LIDOCAINE/EPINEPHRINE 2% 1:200,000 20 ML SDV ONE (18:02)
[2019-11-15] MEDS ORDERED: MoRPHine SULFATE PF 1 MG/ML 10 ML AMP/VIAL ONE (18:02)
[2019-11-15] MEDS ORDERED: ONDANSETRON INJ 2 MG/ML 2 ML VIAL ONE (18:03)
[2019-11-15 18:11] LABS: Mean Corpuscular Hgb Conc 33.7 g/dL (32-36)
--- NOTE | 2019-11-15 18:14 | History and Physical Report ---
DATE OF ADMISSION: 11/13/2019 CHIEF COMPLAINT: Arrest of labor, gestational diabetes, macrosomia. HISTORY OF PRESENT ILLNESS: The patient is a 39-year-old 2, para 0, 1 spontaneous AB. She is in relatively good general health. She does have a history of a left bundle branch block and had a history of being treated for Lyme disease, also has a history of chronic migraines. She is on Prozac 20 mg a day. She is on riboflavin for migraines and she is on a vitamin. Her is well-dated; her due date is 11/17/2019. She was admitted for elevation in blood pressure, suspected macrosomia and gestational diabetes, diet controlled. She was admitted for induction, given initially Cervidil tape, she hyper stimmed out after about 6 hours on the Cervidil tape then she went on to receive about 28 hours of IV Pitocin. I have increased the Pitocin up to the point where she is getting a good strong contractions every 2-3 minutes and she had an arrest of labor at 6-7 cm for 4 hours despite having had adequate uterine stimulation. This consisted of an arrest of descent and also arrest of dilatation. Presently being scheduled for a due to cephalopelvic disproportion, suspected macrosomia. Should be noted she had an ultrasound evaluation of her weight and they estimated about 9.5 pounds. PAST SURGICAL HISTORY: She has had an ACL repair of her left knee. She had wisdom teeth removed. She had a laparoscopic cholecystectomy. MEDICAL HISTORY: She has had a long history of chronic migraines for which she is on medication. ALLERGIES: SHE IS ALLERGIC TO ERYTHROMYCIN. SOCIAL HISTORY: No smoking, no alcohol intake during her . She works as a nurse. FAMILY HISTORY: Mother 69 in relatively good health. Father 70 with diabetes. One older brother and one older sister. Her older sister has congenital heart block. REVIEW OF SYSTEMS: She has a history of migraine headaches. She also has a cerebral venous anomaly, which was diagnosed and worked up at [facility]. She has a history of being treated for Lyme disease. PHYSICAL EXAMINATION: GENERAL: Well-developed, well-nourished 39-year-old female, alert, oriented x3 and cooperative, no acute distress, appears stated age. EYES: Conjunctivae are pink. Sclerae white, no evidence of jaundice. HEART: Had regular rhythm. S1, S2 are normal. LUNGS: Clear to auscultation and percussion. ABDOMEN: Soft and nontender. Estimated weight of over 9 pounds. MUSCULOSKELETAL: Revealed no calf tenderness. PELVIC: Cervix 100% effaced, 6-7 cm dilated, posterior, -2 station, vertex. IMPRESSIONS OF THIS CASE: History of migraines, history of ACL repair, history of laparoscopic cholecystectomy, history of removal of wisdom teeth, suspected macrosomia, arrest of labor secondary to cephalopelvic disproportion.
[2019-11-15] MEDS ORDERED: NALOXONE HCL 1 MG in SODIUM CHLORIDE 0.9% 1000ML 1,000 ML IV PRN (18:35)
[2019-11-15] MEDS ORDERED: NALBUPHINE HCL INJ 10 MG/ML AMP IV PRN (18:35)
[2019-11-15] MEDS ORDERED: MEPERIDINE HCL 25 MG/ML CARP IV PRN (18:35)
[2019-11-15] MEDS ORDERED: KETOROLAC 30 MG/ML VIAL IV PRN (18:35)
[2019-11-15] MEDS ORDERED: NALOXONE HCL 0.08 MG in SYRINGE 1.8 ML IV PRN (18:35)
[2019-11-15] MEDS ORDERED: MoRPHine SULFATE PF 1 MG/ML 10 ML AMP/VIAL INT SPINAL ONE (18:35)
[2019-11-15] MEDS ORDERED: ePHEDrine sulfate 50 MG/ML AMP IV PRN (18:35)
[2019-11-15] MEDS ORDERED: LACTATED RINGER'S 500 ML IV PRN (18:35)
[2019-11-15] MEDS ORDERED: DiphenhydrAMINE HCL 50 MG/ML VIAL IV PRN (18:35)
[2019-11-15] MEDS ORDERED: NALOXONE HCL 0.4 MG/1 ML VIAL/CARP IV PRN (18:35)
[2019-11-15] MEDS ORDERED: ONDANSETRON INJ 2 MG/ML 2 ML VIAL IV PRN (18:35)
[2019-11-15] MEDS ORDERED: MIDAZOLAM HCL 1 MG/ML 2ML VIAL ONE (18:37)
[2019-11-15] MEDS ORDERED: SODIUM CHLORIDE 0.9% 1000ML 1,000 ML IV SCH (18:45)
[2019-11-15] MEDS ORDERED: NO NARCOTICS OR SEDATIVES SCH (18:45)
[2019-11-15] MEDS ORDERED: OXYTOCIN 10 UNITS/ML VIAL IM ONE (18:54)
[2019-11-15] MEDS ORDERED: HYDROCORTISONE ACETATE 25 MG SUPP PR PRN (19:03)
[2019-11-15] MEDS ORDERED: BENZOCAINE 20% AER SPR 82.5 GM CAN EXT PRN (19:03)
[2019-11-15] MEDS ORDERED: ZOLPIDEM TARTRATE 5 MG TAB PO PRN (19:03)
[2019-11-15] MEDS ORDERED: DIPHTHERIA/TETANUS/PERTUSSIS 0.5 ML SYR/VIAL IM ONE (19:03)
[2019-11-15] MEDS ORDERED: SUPERCREAM 0.870% 15 GM JAR EXT PRN (19:03)
[2019-11-15] MEDS ORDERED: MAGNESIUM HYDROXIDE SUSP 30 ML UDC PO PRN (19:03)
[2019-11-15] MEDS ORDERED: SENNA 8.6 MG TAB PO PRN (19:03)
--- NOTE | 2019-11-15 19:03 | Post Operative Brief Note ---
Immediate Post Op Note v1 Date of Surgery November 15, 2019 Pre & Post Diagnosis Operation Date: 11/15/19 17:40 Pre-Op Diagnosis: 1. Suspected macrosomia 2. Arrest of labor secondary to cephalopelvic disproportion. Post-Op Diagnosis: Same as above. I identified the patient and participated in the time-out.: Yes Procedure Operation Date: 11/15/19 17:40 Actual Procedures p Section in LD Live Male at 1817(Bilateral) - Felix Sue MD Surgeon Felix Sue MD College Instructor Dr. Trevino Estimated Blood Loss 600 Findings Consistent with Post-Op Diagnosis Specimens 1200 ml Drains Corona Catheter Anesthesia Type General/Epidural Complications none Disposition Accompanied Patient To Recovery: No Disposition: Recovery Room
[2019-11-15] MEDS ORDERED: KETOROLAC 30 MG/ML VIAL ONE (19:06)
--- NOTE | 2019-11-15 19:13 | Anesthesia Procedure Note ---
Date of Service November 15, 2019 Anesthesia Post Epidural Note Vital Signs Vital Signs: Temp Pulse Resp BP Pulse Ox 98.1 F 130 H 18 144/79 H 99 11/15/19 14:57 11/15/19 19:09 11/15/19 14:57 11/15/19 19:03 11/15/19 19:09 Pain Intensity Bilateral Back: Pain Intensity: 0 Notes Mental Status: alert / awake / arousable and participated in evaluation Nausea / Vomiting: adequately controlled Pain: adequately controlled Airway Patency, RR, SpO2: stable & adequate BP & HR: stable & adequate Hydration State: stable & adequate Neuraxial Anesthesia: was administered and sensory block is resolving Anesthetic Complications: no major complications apparent and Pt Satisfied with anesthetic care Epidural: Removed without complications and With tip intact
[2019-11-15] MEDS ORDERED: fentaNYL citrate 100 MCG/2 ML VIAL IV STA (19:14)
--- NOTE | 2019-11-15 19:50 | Anesthesiology Progress Note ---
Date of Service November 15, 2019 Anesthesia Post Procedure Vital Signs Vital Signs: Temp Pulse Resp BP Pulse Ox 18/19 19:46 76 145/83 H 18/19 19:44 81 95 18/19 19:39 74 95 18/19 19:36 81 145/79 H 93 18/19 19:34 87 97 18/19 19:29 87 96 18/19 19:26 88 147/74 H 18/19 19:25 16 97 18/19 19:24 95 H 97 18/19 19:19 106 H 98 18/19 19:16 112 H 146/76 H 18/19 19:15 16 98 18/19 19:14 114 H 98 18/19 19:09 130 H 99 18/19 19:05 98.1 F 16 97 18/19 19:03 105 H 144/79 H 18/19 17:47 82 97 18/19 17:42 80 97 18/19 17:37 91 H 96 18/19 17:32 80 96 18/19 17:27 85 96 18/19 17:24 82 94 18/19 17:22 84 97 18/19 17:17 87 97 18/19 17:12 90 98 18/19 17:07 93 H 97 18/19 17:02 98 H 97 18/19 17:01 93 H 150/90 H 18/19 16:57 71 96 18/19 16:52 104 H 96 18/19 16:51 93 H 93 18/19 16:47 84 95 1218/19 16:44 83 93 1218/19 16:42 95 H 97 18/19 16:37 87 97 1218/19 16:32 90 97 1218/19 16:31 90 154/88 H 18/19 16:29 80 93 12/18/19 16:27 83 96 12/18/19 16:22 78 97 12/18/19 16:17 88 98 18/19 16:12 80 98 18/19 16:07 85 98 18/19 16:02 79 97 18/19 16:01 78 148/79 H 1218/19 15:52 99 H 98 1218/19 15:47 80 98 12/18/19 15:42 89 98 12/18/19 15:37 84 98 1218/19 15:32 83 98 12/18/19 15:30 78 135/75 12/18/19 15:27 84 98 12/18/19 15:22 85 98 1218/19 15:17 74 98 1218/19 15:12 77 98 1218/19 15:07 78 97 1218/19 15:02 82 97 1218/19 15:01 85 130/79 1218/19 14:57 98.1 F 89 18 97 18/19 14:52 81 97 18/19 14:47 87 16 97 18/19 14:42 84 97 18/19 14:37 85 98 18/19 14:32 85 97 18/19 14:30 77 130/77 1218/19 14:27 73 97 18/19 14:22 98.2 F 81 18 97 18/19 14:17 79 20 97 18/19 14:12 86 98 18/19 14:09 91 H 93 18/19 14:07 77 96 18/19 14:02 83 95 18/19 13:57 82 98 18/19 13:53 83 94 12/18/19 13:52 77 97 12/18/19 13:47 77 18 97 1218/19 13:42 82 96 1218/19 13:37 80 96 12/18/19 13:33 87 143/89 H 18/19 13:32 91 H 98 1218/19 13:27 79 96 12/18/19 13:22 80 97 12/18/19 13:19 78 132/70 12/18/19 13:17 79 18 98 12/18/19 13:12 87 98 12/18/19 13:07 75 99 18/19 13:05 82 138/81 12/18/19 13:02 86 97 12/18/19 12:57 68 96 12/18/19 12:52 71 96 12/18/19 12:48 70 16 127/76 12/18/19 12:47 73 97 12/18/19 12:42 65 95 12/18/19 12:37 77 96 12/18/19 12:34 78 125/74 12/18/19 12:32 90 97 12/18/19 12:27 77 98 12/18/19 12:22 75 97 12/18/19 12:18 97.9 F 80 18 129/77 1218/19 12:17 83 97 1218/19 12:12 86 98 12/18/19 12:07 76 97 12/18/19 12:04 75 131/66 12/18/19 12:02 85 97 12/18/19 11:57 82 97 12/18/19 11:52 86 96 12/18/19 11:48 74 16 134/69 12/18/19 11:47 76 97 12/18/19 11:42 79 96 12/18/19 11:37 83 97 12/18/19 11:33 81 128/79 12/18/19 11:32 78 97 12/18/19 11:27 82 97 12/18/19 11:22 88 96 12/18/19 11:18 88 138/82 12/18/19 11:17 84 95 12/18/19 11:12 85 95 12/18/19 11:07 80 95 12/18/19 11:02 66 124/71 94 12/18/19 10:59 81 94 12/18/19 10:57 81 95 12/18/19 10:52 60 94 12/18/19 10:50 61 94 12/18/19 10:48 61 127/75 12/18/19 10:47 68 93 12/18/19 10:45 78 94 12/18/19 10:42 78 95 12/18/19 10:37 66 94 12/18/19 10:34 81 135/70 12/18/19 10:32 97.9 F 80 18 96 12/18/19 10:27 81 96 12/18/19 10:23 61 94 12/18/19 10:22 64 95 12/18/19 10:17 82 125/61 94 12/18/19 10:12 85 96 12/18/19 10:07 82 96 12/18/19 10:03 78 135/67 12/18/19 10:02 81 96 12/18/19 09:57 84 96 12/18/19 09:53 70 94 12/18/19 09:52 70 96 12/18/19 09:48 78 137/66 12/18/19 09:47 69 94 12/18/19 09:42 80 97 12/18/19 09:37 79 97 12/18/19 09:33 60 120/68 12/18/19 09:32 62 94 12/18/19 09:31 65 94 12/18/19 09:27 75 95 12/18/19 09:25 63 94 12/18/19 09:22 65 95 12/18/19 09:17 76 16 121/69 96 12/18/19 09:16 68 93 12/18/19 09:12 66 94 12/18/19 09:11 64 94 12/18/19 09:07 74 95 12/18/19 09:06 68 93 12/18/19 09:03 79 121/70 12/18/19 09:02 74 95 12/18/19 09:00 71 93 12/18/19 08:57 79 96 12/18/19 08:52 83 96 12/18/19 08:47 97.7 F 77 18 128/73 96 12/18/19 08:42 87 97 12/18/19 08:37 75 97 12/18/19 08:33 79 137/80 12/18/19 08:32 81 97 12/18/19 08:27 83 97 12/18/19 08:22 78 96 12/18/19 08:18 85 18 138/78 12/18/19 08:17 82 96 12/18/19 08:12 82 94 12/18/19 08:07 71 95 12/18/19 08:03 82 129/73 12/18/19 08:02 80 96 12/18/19 07:57 91 H 97 12/18/19 07:52 87 96 12/18/19 07:47 98.4 F 93 H 20 122/75 94 12/18/19 07:43 90 94 12/18/19 07:42 91 H 94 12/18/19 07:37 100 H 97 12/18/19 07:33 77 133/82 12/18/19 07:32 85 95 12/18/19 07:27 74 20 96 12/18/19 07:22 81 96 12/18/19 07:17 73 133/71 95 12/18/19 07:15 73 94 12/18/19 07:12 68 95 12/18/19 07:07 78 96 12/18/19 07:03 68 117/69 12/18/19 07:02 72 96 12/18/19 07:00 20 12/18/19 06:57 67 95 12/18/19 06:56 82 93 12/18/19 06:52 77 95 12/18/19 06:47 72 112/67 96 12/18/19 06:42 75 95 12/18/19 06:39 76 93 12/18/19 06:37 80 95 12/18/19 06:34 70 136/72 12/18/19 06:32 80 95 12/18/19 06:30 79 20 93 12/18/19 06:27 89 94 12/18/19 06:24 80 94 12/18/19 06:22 80 95 12/18/19 06:19 92 H 134/71 12/18/19 06:17 74 93 12/18/19 06:15 77 92 12/18/19 06:12 73 95 12/18/19 06:10 68 93 12/18/19 06:07 71 96 12/18/19 06:03 60 123/65 12/18/19 06:02 67 96 12/18/19 06:00 20 12/18/19 05:57 64 96 12/18/19 05:52 63 97 12/18/19 05:48 63 135/64 12/18/19 05:47 66 96 12/18/19 05:42 65 96 12/18/19 05:37 66 96 12/18/19 05:34 78 137/73 12/18/19 05:32 69 95 12/18/19 05:30 20 12/18/19 05:28 77 94 12/18/19 05:27 65 95 12/18/19 05:22 88 96 12/18/19 05:17 65 128/68 95 12/18/19 05:15 62 92 12/18/19 05:12 66 97 12/18/19 05:07 66 96 12/18/19 05:02 86 136/72 96 12/18/19 05:00 20 12/18/19 04:58 90 143/75 H 12/18/19 04:57 85 97 12/18/19 04:54 85 140/75 12/18/19 04:52 69 94 12/18/19 04:51 72 137/65 93 12/18/19 04:47 75 96 12/18/19 04:46 74 94 12/18/19 04:45 20 12/18/19 04:44 86 136/74 12/18/19 04:42 90 95 12/18/19 04:40 73 93 12/18/19 04:38 84 142/71 H 12/18/19 04:37 89 95 12/18/19 04:36 85 132/74 12/18/19 04:35 82 94 12/18/19 04:34 82 139/79 12/18/19 04:32 80 137/74 95 12/18/19 04:30 77 20 139/74 12/18/19 04:28 75 140/74 12/18/19 04:27 94 H 97 12/18/19 04:22 79 95 12/18/19 04:18 75 114/76 12/18/19 04:17 73 95 12/18/19 04:14 73 94 12/18/19 04:12 89 96 12/18/19 04:07 69 96 12/18/19 04:04 60 126/69 12/18/19 04:02 64 94 12/18/19 04:00 71 92 12/18/19 03:57 69 96 12/18/19 03:55 72 93 12/18/19 03:52 76 95 12/18/19 03:49 70 125/74 93 12/18/19 03:47 68 95 12/18/19 03:42 68 96 12/18/19 03:38 71 93 12/18/19 03:37 70 95 12/18/19 03:33 76 132/84 12/18/19 03:32 75 96 12/18/19 03:27 88 97 12/18/19 03:22 71 95 12/18/19 03:19 68 131/72 12/18/19 03:17 70 95 12/18/19 03:12 70 95 12/18/19 03:07 89 96 12/18/19 03:02 72 95 12/18/19 03:01 98.4 F 12/18/19 03:00 20 12/18/19 02:57 81 141/73 H 96 12/18/19 02:53 85 127/74 12/18/19 02:52 89 97 12/18/19 02:47 84 97 12/18/19 02:46 80 132/70 12/18/19 02:45 18 12/18/19 02:44 72 132/72 12/18/19 02:42 78 132/64 96 12/18/19 02:40 81 128/63 12/18/19 02:38 76 134/74 12/18/19 02:37 78 96 12/18/19 02:36 86 134/79 1218/19 02:34 80 132/71 12/18/19 02:32 86 128/72 97 12/18/19 02:30 83 20 136/77 12/18/19 02:28 77 138/70 12/18/19 02:27 80 97 1218/19 02:26 72 140/74 12/18/19 02:25 86 148/80 H 1218/19 02:22 77 96 12/18/19 02:17 75 97 12/18/19 02:16 68 135/75 12/18/19 02:12 79 97 12/18/19 02:07 94 H 97 12/18/19 02:02 75 96 12/18/19 02:01 71 127/77 12/18/19 02:00 20 12/18/19 01:57 79 96 12/18/19 01:52 78 96 12/18/19 01:47 85 96 12/18/19 01:45 75 139/82 12/18/19 01:42 99 H 97 12/18/19 01:41 75 94 12/18/19 01:37 69 94 12/18/19 01:35 71 94 12/18/19 01:32 76 92 12/18/19 01:31 68 132/71 12/18/19 01:30 18 12/18/19 01:29 73 94 12/18/19 01:27 72 95 12/18/19 01:24 76 94 12/18/19 01:22 74 95 12/18/19 01:19 70 94 12/18/19 01:17 81 94 18/19 01:15 73 123/72 12/18/19 01:14 70 93 18/19 01:12 69 96 18/19 01:08 71 94 18/19 01:07 69 95 18/19 01:03 70 94 18/19 01:02 70 94 18/19 01:00 98.1 F 58 L 122/73 18/19 00:59 20 18/19 00:57 68 96 18/19 00:55 69 92 18/19 00:52 83 94 18/19 00:50 67 94 18/19 00:47 66 130/77 95 18/19 00:45 65 93 18/19 00:42 71 94 18/19 00:39 71 92 18/19 00:37 65 95 18/19 00:33 68 94 18/19 00:32 67 94 18/19 00:30 73 20 118/68 1218/19 00:28 74 94 12/18/19 00:27 73 94 12/18/19 00:22 69 95 12/18/19 00:17 64 94 12/18/19 00:16 68 93 12/18/19 00:15 65 119/67 12/18/19 00:12 69 95 12/18/19 00:11 66 94 12/18/19 00:07 67 94 12/18/19 00:05 65 94 18/19 00:02 70 95 18/19 00:00 65 20 115/71 1217/19 23:57 68 95 17/19 23:56 68 94 17/19 23:52 70 96 17/19 23:51 77 93 17/19 23:47 67 95 17/19 23:46 70 149/79 H 17/19 23:45 18 17/19 23:42 75 97 17/19 23:37 86 97 17/19 23:32 87 98 17/19 23:30 98.2 F 75 20 129/70 1217/19 23:27 95 H 97 17/19 23:22 74 96 12/17/19 23:17 88 98 11/14/19 23:15 82 20 128/66 11/14/19 23:12 89 97 11/14/19 23:11 86 144/72 H 11/14/19 23:07 97 H 98 11/14/19 23:06 99 H 133/68 11/14/19 23:02 97 H 98 11/14/19 23:01 100 H 136/73 11/14/19 23:00 20 11/14/19 22:59 106 H 136/74 11/14/19 22:57 109 H 127/67 97 11/14/19 22:55 105 H 20 126/76 11/14/19 22:53 115 H 123/74 11/14/19 22:52 105 H 97 11/14/19 22:51 103 H 130/77 11/14/19 22:50 20 11/14/19 22:49 101 H 124/70 11/14/19 22:47 106 H 125/73 96 11/14/19 22:45 104 H 20 127/75 11/14/19 22:43 107 H 140/74 11/14/19 22:42 112 H 97 11/14/19 22:41 103 H 144/83 H 11/14/19 22:39 100 H 130/80 11/14/19 22:37 93 H 145/83 H 98 11/14/19 22:32 96 H 98 11/14/19 22:27 82 98 11/14/19 22:22 89 97 11/14/19 22:17 97 H 98 11/14/19 22:12 87 97 11/14/19 21:55 98.2 F 11/14/19 21:52 86 136/84 11/14/19 20:51 75 117/51 L 11/14/19 20:02 88 144/81 H Pain Intensity Bilateral Back: Pain Intensity: 7 Transfer of Care Handoff Completed per policy Notes Mental Status: alert / awake / arousable and participated in evaluation Nausea / Vomiting: adequately controlled Pain: adequately controlled Airway Patency, RR, SpO2: stable & adequate BP & HR: stable & adequate Hydration State: stable & adequate Neuraxial Anesthesia: was administered and sensory block is resolving Anesthetic Complications: no major complications apparent and Pt Satisfied with anesthetic care
[2019-11-15] MEDS ORDERED: ACETAMINOPHEN 1000 MG/100 ML IV IV ONE (19:57)
[2019-11-15] MEDS ORDERED: ACETAMINOPHEN 1,000 MG/100 ML VIAL IV STA (19:58)
--- NOTE | 2019-11-15 19:58 | Operative Report ---
DATE OF OPERATION: 11/15/2019 PROCEDURE: Primary low segment section. INDICATIONS FOR SURGERY: Macrosomia, cephalopelvic disproportion. PREOPERATIVE DIAGNOSES: Macrosomia, cephalopelvic disproportion, failed induction. POSTOPERATIVE DIAGNOSES: Macrosomia, cephalopelvic disproportion, failed induction, delivered live infant. SURGEON: Dr. Sue. GYN PHYSICIAN: Dr. Trevino. ESTIMATED BLOOD LOSS: 600 mL. ANESTHESIA: Epidural. OPERATIVE FINDINGS AND PROCEDURE: The patient was brought to the OR table. Epidural anesthesia was topped off. Compression stockings were applied. Corona catheter was inserted aseptically in the bladder, connected to gravity drainage. Lower abdomen was painted with an alcohol based sterilizing solution, draped in the usual sterile fashion. Level of the anesthesia was checked and found to be adequate. Pfannenstiel incision was made, carried down to the anterior fascia by sharp dissection. Hemostasis was secured by electrocauterization. Fascia was incised transversely from the underlying muscle by blunt and sharp dissection. Recti muscles were in the midline exposing the peritoneum which was carefully raised and entered. Incision was made above the vesicouterine fold. Bladder was undermined bluntly and pushed out of the operative field. The lower uterine segment was scored with a knife, then entered with scissors. Clear amniotic fluid was seen coming through the incision. Incision was then widened laterally. Vectis retractor was inserted to the head with fundal pressure, the was delivered. was suctioned through the mouth and the nose after delivery of the head. Shoulders were delivered without difficulty. Cord was clamped and cut and the was attended to by the wool hanker who has scrubbed and present at the time of delivery. Following this, cord blood was taken. The placenta was removed manually. Uterus, tubes, and ovary were brought out through the incision. Uterine cavity was wiped clean with a clean sponge. All membranes were removed. Ten units of Pitocin was injected right into the myometrium. The myometrial defect was then grasped with ring forceps at each angle and in the middle and it was approximated with a continuous interlocking suture of heavy chromic and then after that a second layer with heavy Vicryl was approximated over the chromic approximation to approximate the fascial layer. Following this, the peritoneal edges were restored with a continuous 3-0 chromic and this restored the integrity of the vesicouterine fold. Tubes and ovaries were inspected and found to be normal. The pelvis was cleansed of all blood clots and debris. Uterus, tubes, and ovaries were reinserted into the abdominal cavity. The uterine approximation was checked and found to be hemostatic. Careful anatomical approximation of the anterior abdominal wall was performed. Peritoneum was closed with a mattress suture of chromic catgut. Recti muscles were approximated with interrupted [id number] suture of chromic catgut. The fascia was closed with continuous interlocking suture of Vicryl on each side, tied in the midline. SubQ was approximated with a running plain. The skin edges were approximated with staple clips. I attest to the content of the Intraoperative Record and any orders documented therein. Any exception s are noted below.
[2019-11-16] MEDS: DOCUSATE SODIUM 100 MG CAP PO SCH ×3 (00:08→21:21)
[2019-11-16] MEDS: SIMETHICONE 80 MG CHEW PO SCH ×5 (00:09→21:21)
[2019-11-16 06:42] LABS: Basophils # (auto) 0.02 K/uL (0-0.2); Basophils % (auto) 0.2 %; Eosinophils # (auto) 0.09 K/uL (0-0.5); Eosinophils % (auto) 0.7 %; Hematocrit (blood only) 26.8 % (37-47); Hemoglobin 9.4 g/dL (12.0-16.0); Immature Granulocytes # (auto) 0.11 K/uL (0.00-0.02); Immature Granulocytes % (auto) 0.9 %; Lymphocytes % (auto) 18.7 %; Mean Corpuscular Hemoglobin 34.4 pg (25-34); Mean Corpuscular Hgb Conc 35.1 g/dL (32-36); Mean Corpuscular Volume 98.2 fL (80-100); Mean Platelet Volume 10.5 fL (7.4-10.4); Monocytes # (auto) 1.34 K/uL (0.11-0.59); Monocytes % (auto) 10.9 %; Neutrophils # (auto) 8.45 K/uL (1.4-6.5); Neutrophils % (auto) 68.6 %; Platelet Count 151 K/uL (130-400); RDW Coefficient of Variation 14.1 % (11.5-14.5); RDW Standard Deviation 50.4 fL (36.4-46.3); Red Blood Count 2.73 M/uL (4.2-5.4); White Blood Count 12.31 K/uL (4.8-10.8)
[2019-11-16] MEDS: PRENATAL VITAMIN 1 TAB PO SCH (07:50)
[2019-11-16] MEDS: FERROUS SULFATE 325 MG TAB PO SCH (07:50)
--- NOTE | 2019-11-16 10:29 | Surgery Progress Note ---
Date of Service November 16, 2019 Subjective POD#1 doing well minimal pain passing small amount of gas tolerating diet Physical Exam Constitutional: WD/WN, vitals as above comfortable abdomen soft positive bowel sounds incision clean dry and intact no edema neg Velia's will advance care Results & Data Vital Signs (Past 12 Hours) Vital Signs Temp Pulse Resp BP Pulse Ox 11/16/19 09:22 18 97 11/16/19 08:30 18 97 11/16/19 07:45 36.8 C 92 H 16 124/74 97 11/16/19 07:15 16 95 11/16/19 06:20 18 97 11/16/19 05:05 18 97 11/16/19 04:20 18 96 11/16/19 03:35 37.2 C 105 H 18 149/76 H 97 11/16/19 03:25 16 94 11/16/19 02:30 16 92 11/16/19 01:25 16 92 11/16/19 00:25 18 98 11/15/19 23:50 36.7 C 87 18 145/80 H 96 11/15/19 22:30 36.7 C 69 18 137/77 98 Laboratory Results Laboratory Results - last 72 hr 11/13/19 11/13/19 11/13/19 18:05 18:05 18:05 WBC 11.31 H RBC 3.59 L Hgb 12.0 Hct 34.4 L MCV 95.8 MCH 33.4 MCHC 34.9 RDW Std Deviation 49.1 H RDW Coeff of Tamiko 14.1 Plt Count 171 MPV 10.8 H Immature Gran % (Auto) Neut % (Auto) Lymph % (Auto) [place] % (Auto) Eos % (Auto) Baso % (Auto) Immature Gran # (Auto) Neut # (Auto) Lymph # (Auto) [place] # (Auto) Eos # (Auto) Baso # (Auto) Sodium 139 Potassium 4.1 Chloride 109 H Carbon Dioxide 20 L Anion Gap 10.0 BUN 12 Creatinine 0.68 Est Cr Clr Drug Dosing 141.0 Est GFR ( Amer) 129.5 Est GFR (Non-Af Amer) 111.7 BUN/Creatinine Ratio 17.9 Glucose 170 H Calcium 9.1 Total Bilirubin 0.2 AST 33 ALT 47 Alkaline Phosphatase 185 H Lactate Dehydrogenase Total Protein 6.4 Albumin 2.3 L Globulin 4.1 H Albumin/Globulin Ratio 0.6 L Specimen Hemolysis 11/13/19 11/13/19 11/15/19 18:55 19:39 17:39 WBC 12.19 H RBC 3.49 L Hgb 11.3 L Hct 33.5 L MCV 96.0 MCH 32.4 MCHC 33.7 RDW Std Deviation 49.5 H RDW Coeff of Tamiko 14.1 Plt Count 154 MPV 11.1 H Immature Gran % (Auto) 1.7 Neut % (Auto) 70.9 Lymph % (Auto) 15.8 [place] % (Auto) 10.8 Eos % (Auto) 0.6 Baso % (Auto) 0.2 Immature Gran # (Auto) 0.21 H Neut # (Auto) 8.65 H Lymph # (Auto) 1.92 [place] # (Auto) 1.32 H Eos # (Auto) 0.07 Baso # (Auto) 0.02 Sodium Potassium Chloride Carbon Dioxide Anion Gap BUN Creatinine Est Cr Clr Drug Dosing Est GFR ( Amer) Est GFR (Non-Af Amer) BUN/Creatinine Ratio Glucose Calcium Total Bilirubin AST ALT Alkaline Phosphatase Lactate Dehydrogenase 176 Total Protein Albumin Globulin Albumin/Globulin Ratio Specimen Hemolysis 11/16/19 06:25 WBC 12.31 H RBC 2.73 L Hgb 9.4 L Hct 26.8 L MCV 98.2 MCH 34.4 H MCHC 35.1 RDW Std Deviation 50.4 H RDW Coeff of Tamiko 14.1 Plt Count 151 MPV 10.5 H Immature Gran % (Auto) 0.9 Neut % (Auto) 68.6 Lymph % (Auto) 18.7 [place] % (Auto) 10.9 Eos % (Auto) 0.7 Baso % (Auto) 0.2 Immature Gran # (Auto) 0.11 H Neut # (Auto) 8.45 H Lymph # (Auto) 2.30 [place] # (Auto) 1.34 H Eos # (Auto) 0.09 Baso # (Auto) 0.02 Sodium Potassium Chloride Carbon Dioxide Anion Gap BUN Creatinine Est Cr Clr Drug Dosing Est GFR ( Amer) Est GFR (Non-Af Amer) BUN/Creatinine Ratio Glucose Calcium Total Bilirubin AST ALT Alkaline Phosphatase Lactate Dehydrogenase Total Protein Albumin Globulin Albumin/Globulin Ratio Specimen Hemolysis
[2019-11-16] MEDS: IBUPROFEN 600 MG TAB PO PRN ×2 (12:33→16:39)
[2019-11-16] MEDS: OXYCODONE/ACETAMINOPHEN 5mg/325mg TAB PO PRN ×3 (12:33→20:00)
[2019-11-16] MEDS ORDERED: DiphenhydrAMINE HCL 50 MG/ML VIAL IV PRN (12:35)
[2019-11-16] MEDS ORDERED: MEPERIDINE HCL 50 MG/ML CARP IV PRN (12:35)
[2019-11-16] MEDS ORDERED: PROMETHAZINE HCL 25 MG in SODIUM CHLORIDE 0.9% 50 ML IV PRN (12:35)
[2019-11-16] MEDS ORDERED: DC INTRASPINAL MORPHINE SCH (12:35)
[2019-11-16] MEDS ORDERED: ONDANSETRON INJ 2 MG/ML 2 ML VIAL IV PRN (12:35)
[2019-11-16] MEDS ORDERED: KETOROLAC 30 MG/ML VIAL IV PRN (12:35)
[2019-11-16] MEDS ORDERED: bisacodyL 5 MG TABEC PO SCH (20:00)
[2019-11-17] MEDS: IBUPROFEN 600 MG TAB PO PRN ×6 (00:03→22:13)
[2019-11-17] MEDS: OXYCODONE/ACETAMINOPHEN 5mg/325mg TAB PO PRN ×7 (00:04→22:12)
[2019-11-17] MEDS ORDERED: bisacodyL 10 MG SUPP PR PRN (07:00)
[2019-11-17 07:09] LABS: Hematocrit (blood only) 27.7 % (37-47); Hemoglobin 9.4 g/dL (12.0-16.0)
[2019-11-17] MEDS: SIMETHICONE 80 MG CHEW PO SCH ×4 (07:56→21:23)
[2019-11-17] MEDS: DOCUSATE SODIUM 100 MG CAP PO SCH ×2 (07:56→21:23)
[2019-11-17] MEDS: FERROUS SULFATE 325 MG TAB PO SCH (07:56)
[2019-11-17] MEDS: PRENATAL VITAMIN 1 TAB PO SCH (07:56)
--- NOTE | 2019-11-17 10:02 | Obstetrical Progress Note ---
Date of Service November 17, 2019 Subjective Patient is seen and examined. She feels well, no complaints. Pain is under control with oral meds. Ambulating without dizziness Voiding without difficulty Tolerating regular diet with out N&V Flatus + BM + Bleeding is minimal No fever/ chills/ CP/ SOB/ N&V/ Leg pain Breast feeding without problems Vital Signs Temp Pulse Resp BP BP Pulse Ox 11/17/19 04:30 145/85 H 11/17/19 00:20 36.8 C 88 18 140/88 95 11/16/19 16:22 36.7 C 90 20 142/87 H 94 11/16/19 12:18 18 96 11/16/19 11:21 18 97 11/16/19 11:05 36.6 C 94 H 16 132/81 98 11/16/19 10:29 18 98 11/17/19 Range/Units 06:46 Hgb 9.4 L (12.0-16.0) g/dL Hct 27.7 L (37-47) % PE: General: Alert, orientedx3, NAD CVS: S1S2 RRR Lungs; CTAB Abd: soft, NT, ND, BS+, fundus firm, below Umbilicus Incision: Clean, dry, intact Perineum intact, Lochia rubra minimal Ext; NT, no edema AP: 39 yo s/p C Section, pod# 2 VSS Afebrile doing well Continue routine postop care Encourage ambulation, PO intake All questions were answered D/C home tomorrow Results & Data Vital Signs (Past 12 Hours) Vital Signs Temp Pulse Resp BP BP Pulse Ox 11/17/19 04:30 145/85 H 11/17/19 00:20 36.8 C 88 18 140/88 95
[2019-11-17] MEDS: FLUOXETINE HCL 20 MG CAP PO SCH (12:31)
[2019-11-18] MEDS: OXYCODONE/ACETAMINOPHEN 5mg/325mg TAB PO PRN ×3 (02:37→13:58)
[2019-11-18 03:32] LABS: Basophils # (auto) 0.02 K/uL (0-0.2); Basophils % (auto) 0.2 %; Eosinophils # (auto) 0.21 K/uL (0-0.5); Hematocrit (blood only) 27.5 % (37-47); Hemoglobin 9.4 g/dL (12.0-16.0); Immature Granulocytes % (auto) 2.9 %; Lymphocytes # (auto) 2.77 K/uL (1.2-3.4); Lymphocytes % (auto) 26.8 %; Mean Corpuscular Hemoglobin 33.5 pg (25-34); Mean Corpuscular Hgb Conc 34.2 g/dL (32-36); Mean Corpuscular Volume 97.9 fL (80-100); Mean Platelet Volume 9.4 fL (7.4-10.4); Monocytes # (auto) 0.75 K/uL (0.11-0.59); Monocytes % (auto) 7.3 %; Neutrophils # (auto) 6.27 K/uL (1.4-6.5); Neutrophils % (auto) 60.8 %; Platelet Count 167 K/uL (130-400); RDW Coefficient of Variation 14.2 % (11.5-14.5); RDW Standard Deviation 50.5 fL (36.4-46.3); Red Blood Count 2.81 M/uL (4.2-5.4); White Blood Count 10.32 K/uL (4.8-10.8)
[2019-11-18 03:49] LABS: Albumin Level 1.7 gm/dl (3.4-5.0); BUN Creatinine Ratio 16.2 (10-20); Calcium 8.1 mg/dl (8.5-10.1); Creatinine Clr Calc Pharmacy 177.6 ml/min; Est GFR (African American) 139.7; Est GFR (Non-African American) 120.6; Potassium 3.9 mmol/L (3.5-5.1)
[2019-11-18 03:51] LABS: Albumin Globulin Ratio 0.5 (0.9-2); Bilirubin,Total 0.1 mg/dl (0.2-1); Globulin 3.5 gm/dl (2.5-4.0); Total Protein 5.2 gm/dl (6.4-8.2)
[2019-11-18] MEDS: IBUPROFEN 600 MG TAB PO PRN ×3 (06:31→14:56)
[2019-11-18] MEDS: DOCUSATE SODIUM 100 MG CAP PO SCH (08:19)
[2019-11-18] MEDS: PRENATAL VITAMIN 1 TAB PO SCH (08:19)
[2019-11-18] MEDS: SIMETHICONE 80 MG CHEW PO SCH ×2 (08:19→12:41)
[2019-11-18] MEDS: FERROUS SULFATE 325 MG TAB PO SCH (08:19)
[2019-11-18] MEDS: FLUOXETINE HCL 20 MG CAP PO SCH (08:22)
--- NOTE | 2019-11-18 09:58 | Obstetrical Progress Note ---
Date of Service November 18, 2019 Assessment & Plan (1) deliv NOS-unsp: c/sec day #3 pt doing well disch home with instructions Subjective Ambulation: ambulating normally Voiding: no voiding problems Passing Gas:: Yes Diet Tolerance:: clear liquids Lochia:: Small Feeding Type:: breast feeding Review of Systems All systems reviewed & are unremarkable except as noted in HPI & below Physical Exam Constitutional WD/WN, vitals as above well developed and well nourished Eyes PERRL, conjunctivae normal, anicteric sclerae ENMT external ear and nose normal, oropharynx normal Neck trachea midline, no thyromegaly Respiratory normal respiratory effort, lungs clear to auscultation Cardiovascular RRR, no murmur, no edema Chest (Breasts) normal inspection/palpation of breasts Gastrointestinal (Abdomen) normal bowel sounds, soft, nontender, no hepatosplenomegaly Musculoskeletal no cyanosis or clubbing, extremities motor strength 5/5 Skin no rashes, warm and dry + incision (Clean,dry and intact) Neurologic patellar DTR's 2+ bilat, sensation intact Psychiatric A+Ox3, euthymic affect Genitourinary normal external appearance Lymphatic no cervical or axillary lymphadenopathy Results & Data Vital Signs (Past 12 Hours) Vital Signs Temp Pulse Resp BP BP Pulse Ox 11/18/19 08:20 36.7 C 105 H 20 149/91 H 11/18/19 00:00 36.8 C 96 H 17 146/88 H 95
--- NOTE | 2019-11-18 10:03 | Obstetrical Progress Note ---
Date of Service November 18, 2019 Results & Data Vital Signs (Past 12 Hours) Vital Signs Temp Pulse Resp BP BP Pulse Ox 11/18/19 08:20 36.7 C 105 H 20 149/91 H 11/18/19 00:00 36.8 C 96 H 17 146/88 H 95
== END 2019-11-18 16:30 | disposition home or self-care (01) | DRG 788 ==
LOC: 4S1 16:10 → 4S2 11-15 22:51